=== PATIENT | female | born 1960 | race Caucasian/White ===

== ENCOUNTER 2024-07-06 19:45 | Outpatient (CLI) | payer BC, SELFPAY | END 2024-07-06 19:46 | disposition home or self-care (01) | LOC: SLEEP 19:51 | PROVIDERS: PCP Nurse Practitioner Adult Health; Visit Provider Internal Medicine | DX: G47.33 Obstructive sleep apnea (adult) (pediatric) (principal) | CPT/HCPCS: 95811 ==